=== PATIENT | male | born 1960 | race Caucasian/White ===

== ENCOUNTER → 2017-10-30 16:54 | Outpatient (CLI) | payer BC, SELFPAY ==
[2017-10-30 18:11] LABS: PSA,Total- Diagnostic 3.01 ng/mL (0.0-4.0)
== END ==
PROVIDERS: Family Provider Internal Medicine; PCP Internal Medicine; Visit Provider Urology
DX: Z12.5 Encounter for screening for malignant neoplasm of prostate (principal)
CPT/HCPCS: 36415; 84153

== ENCOUNTER → 2018-03-26 | Outpatient (CLI) | payer BC, SELFPAY ==
[2018-03-26 10:42] LABS: Amphetamine Urine VISTA NEGATIVE (<1000 ng/mL); Barbiturate Urine VISTA NEGATIVE (< 200 ng/mL); Benzodiazepine Urine VISTA NEGATIVE (< 200 ng/mL); Cocaine Urine VISTA NEGATIVE (< 300 ng/mL); Ecstacy Urine VISTA NEGATIVE (< 500 ng/mL); Methadone Urine VISTA NEGATIVE (< 300 ng/mL); PCP Urine VISTA NEGATIVE (< 25 ng/mL); THC Urine VISTA NEGATIVE (< 50 ng/mL); Vista UDS pH Range 7
== END | disposition home or self-care (01) ==
PROVIDERS: Family Provider Internal Medicine; PCP Internal Medicine; Referring Provider Anesthesiology Pain Medicine; Visit Provider Anesthesiology Pain Medicine
DX: F11.20 Opioid dependence, uncomplicated (principal)
CPT/HCPCS: 80307

== ENCOUNTER → 2019-03-10 10:02 | Outpatient (CLI) | payer BC, SELFPAY ==
[2019-03-10 11:13] LABS: Amphetamine Urine VISTA NEGATIVE (<1000 ng/mL); Barbiturate Urine VISTA NEGATIVE (< 200 ng/mL); Benzodiazepine Urine VISTA NEGATIVE (< 200 ng/mL); Cocaine Urine VISTA NEGATIVE (< 300 ng/mL); Ecstacy Urine VISTA NEGATIVE (< 500 ng/mL); Methadone Urine VISTA NEGATIVE (< 300 ng/mL); PCP Urine VISTA NEGATIVE (< 25 ng/mL); THC Urine VISTA NEGATIVE (< 50 ng/mL); Vista UDS pH Range 6
== END ==
PROVIDERS: Family Provider Internal Medicine; PCP Internal Medicine; Referring Provider Anesthesiology Pain Medicine; Visit Provider Anesthesiology Pain Medicine
DX: F11.20 Opioid dependence, uncomplicated (principal)
CPT/HCPCS: 80307

== ENCOUNTER → 2020-01-05 09:31 | Outpatient (CLI) | payer BC, SELFPAY ==
[2020-01-05 10:59] LABS: Amphetamine Urine VISTA NEGATIVE (<1000 ng/mL); Barbiturate Urine VISTA NEGATIVE (< 200 ng/mL); Benzodiazepine Urine VISTA NEGATIVE (< 200 ng/mL); Cocaine Urine VISTA NEGATIVE (< 300 ng/mL); Ecstacy Urine VISTA NEGATIVE (< 500 ng/mL); Methadone Urine VISTA NEGATIVE (< 300 ng/mL); PCP Urine VISTA NEGATIVE (< 25 ng/mL); THC Urine VISTA NEGATIVE (< 50 ng/mL); Vista UDS pH Range 7
== END ==
PROVIDERS: PCP Internal Medicine; Referring Provider Anesthesiology Pain Medicine; Visit Provider Anesthesiology Pain Medicine
DX: F11.20 Opioid dependence, uncomplicated (principal)
CPT/HCPCS: 36415; 80307

== ENCOUNTER 2020-06-16 06:45 | Emergency (ER) | payer BC, SELFPAY ==
[2020-06-16] VITALS (11 sets, daily range): BP systolic 112–161; BP diastolic 46–90; PULSE 71–94; RESP 14–20; TEMP 36.4–36.7; O2SAT 94–100; BMI 43.7
--- NOTE | 2020-06-16 06:53 | NURSING ---
NO OLD EKGS
--- NOTE | 2020-06-16 07:08 | RAD_ITS ---
STUDY: X-RAY CHEST REASON FOR EXAM: Male, 59 years old. SYNCOPE TECHNIQUE: Single AP portable view of the chest. COMPARISON: None. FINDINGS: The lungs are clear and expanded. There is no demonstrated pleural abnormality. Normal size heart. Normal mediastinum and jerry. Normal visualized pulmonary arteries. Normal visualized aortic arch and descending thoracic aorta. Normal visualized thoracic spine. There is degenerative osteoarthritis of the bilateral shoulders. There is no demonstrated abnormality of the visualized soft tissue structures of the upper abdomen. RAD/Chest 1 View (Portable) IMPRESSION: Degenerative changes, as described above. No demonstrated acute cardiopulmonary process. Electronically Signed: Cinthia Watkins MD at 7:44 EST Tel , Service support ,
--- NOTE | 2020-06-16 07:08 | EKG12_ITS ---
Test Reason : SYNCOPE Blood Pressure : / mmHG Vent. Rate : 084 BPM Atrial Rate : 084 BPM P-R Int : 166 ms QRS Dur : 146 ms QT Int : 400 ms P-R-T Axes : 039 -59 019 degrees QTc Int : 472 ms Normal sinus rhythm Right bundle branch block Left anterior fascicular block Bifascicular block Abnormal ECG Confirmed by SALVADOR COLE, ANGEL ([id number]), city editor HILDA CHAPMAN ([id number]) on 06/21/2020 7:54:43 AM Referred By: SERENA Confirmed By:JACKELIN FRANCO MD
--- NOTE | 2020-06-16 07:21 | ED.DCSUM_ITS ---
History of Present Illness Chief Complaint: Syncope Informant: Patient, Family Narrative: 59-year-old male presents following a syncopal episode at home. Patient tells me that he woke this morning had a burning sensation in his head and tinnitus. He states he took off his BiPAP for which he wears for central sleep apnea got sweaty noted that his heart rate was in the 50s according to his apple watch and had a syncopal episode. He tells me that last year while exercising on the treadmill and then exercise bike he had a syncopal episode. He wore a 2-week Holter monitor reportedly was negative. He went for a cardiac stress test and tells me that he had syncope while waiting in a chair after injection. This was followed up by a heart catheterization which was negative. He is currently taking metoprolol 50 mg twice daily for tachycardia. He has not had syncope since that time. Past Medical History - Allergies and Home Meds Allergies/Adverse Reactions: Allergies Penicillins Allergy (Verified 06/16/20 06:50) Anaphylaxis tramadol [From [facility]] Adverse Reaction (Verified 06/16/20 06:50) Rash Past Medical History: - - Central Sleep Apnea Surgical History: gastric bypass Lives: Spouse/ Significant Other Smoking Status: Never smoker Drugs: None Review of Systems General: Denies: Chills, Fever, Sweats Eyes: Denies: Visual changes - bilaterally, Diplopia ENT: Reports: - - Tinnitus. Denies: Rhinorrhea, Sore throat Cardiovascular: Reports: - - Syncope. Denies: Chest pain, Palpitations, Heart racing Respiratory: Denies: Dyspnea, Cough, Dyspnea on exertion Gastrointestinal: Denies: Abdominal pain, Nausea, Vomiting, Diarrhea, Melena, Hematochezia Genitourinary: Denies: Dysuria, Hematuria, Frequency Musculoskeletal: Denies: Back pain, Extremity Pain Skin: Denies: Rash, Wounds Neurological: Denies: Headache, Weakness, Numbness Physical Exam Vital Signs/Narrative: Vital Signs Temp Pulse Resp BP Pulse Ox 06/16/20 06:46 98.1 F 88 15 161/84 H 100 Inital Vital Signs reviewed: Yes General: Well nourished, Well developed, Obese, No Acute Distress Head: Normocephalic, Atraumatic Eyes: Perrl, EOMI ENT: Moist mucous membranes, No rhinorrhea Neck: Supple, Nontender Cardiovascular: Regular rate, Regular rhythm, No murmurs Respiratory: No distress, CTA bilaterally, Chest nontender Abdomen: Soft, Nontender, Nondistended, Normal bowel sounds Back: Nontender, Normal Inspection Extremities: Nontender, No edema Skin: Normal color, No rash Neurological: Alert, Oriented x3, Cranial nerves II-XII grossly intact, Normal Strength, Normal Sensation Psychological: Normal affect, Normal Mood Diagnostic/Tx/Re-eval Clinical Impression(s) from Imaging Studies Chest X-Ray 06/16/20 07:08 IMPRESSION: Degenerative changes, as described above. No demonstrated acute cardiopulmonary process. Electronically Signed: Cinthia Watkins MD at 7:44 EST Tel , Service support , Laboratory Last Values WBC 8.0 K/mm3 (4.4-11.0) 06/16/20 06:55 RBC 5.09 M/mm3 (4.6-6.2) 06/16/20 06:55 Hgb 14.7 g/dL (13.0-16.5) 06/16/20 06:55 Hct 46.3 % (40-54) 06/16/20 06:55 MCV 91.0 fL (80-94) 06/16/20 06:55 MCH 28.9 pg (27.0-32.0) 06/16/20 06:55 MCHC 31.7 g/dL (32-36) L 06/16/20 06:55 RDW Std Deviation 40.6 fl (35.1-43.9) 06/16/20 06:55 RDW Coeff of Karmen 12.4 % (11.6-14.6) 06/16/20 06:55 Plt Count 207 K/mm3 (150-450) 06/16/20 06:55 MPV 10.7 fl (6.2-12.0) 06/16/20 06:55 Immature Gran % (Auto) 0.300 % (0.0-0.9) 06/16/20 06:55 Neut % (Auto) 53.0 % (47-70) 06/16/20 06:55 Lymph % (Auto) 36.7 % (19-41) 06/16/20 06:55 [place] % (Auto) 7.8 % (0-10) 06/16/20 06:55 Eos % (Auto) 1.9 % (0-5) 06/16/20 06:55 Baso % (Auto) 0.3 % (0-1) 06/16/20 06:55 Absolute Neuts (auto) 4.2 X10^3/uL (2.0-7.7) 06/16/20 06:55 Absolute Lymphs (auto) 2.92 X10^3/uL (0.83-4.51) 06/16/20 06:55 Nucleated RBC % 0 % (0-5) 06/16/20 06:55 PT Cancelled 06/16/20 07:54 INR Cancelled 06/16/20 07:54 APTT Cancelled 06/16/20 07:54 Sodium 139 mmol/L (136-145) 06/16/20 06:55 Potassium 4.3 mmol/L (3.5-5.1) 06/16/20 06:55 Chloride 107 mmol/L (98-107) 06/16/20 06:55 Carbon Dioxide 23.0 mmol/L (21.0-32.0) 06/16/20 06:55 Anion Gap 9 (5-15) 06/16/20 06:55 BUN 22 mg/dL (7-18) H 06/16/20 06:55 Creatinine 1.12 mg/dL (0.70-1.30) 06/16/20 06:55 Estim Creat Clear Calc 75.64 ml/min 06/16/20 06:55 Est GFR (MDRD) Af Amer 86 mL/min (>60) 06/16/20 06:55 Est GFR (MDRD) Non-Af 71 mL/min (>60) 06/16/20 06:55 BUN/Creatinine Ratio 19.6 RATIO (10-20) 06/16/20 06:55 Glucose 116 mg/dL (74-106) H 06/16/20 06:55 Calcium 8.9 mg/dL (8.5-10.1) 06/16/20 06:55 Magnesium 2.0 mg/dL (1.6-2.6) 06/16/20 06:55 Total Bilirubin 0.40 mg/dL (0.20-1.00) 06/16/20 06:55 AST 31 U/L (15-37) 06/16/20 06:55 ALT 34 U/L (16-61) 06/16/20 06:55 Alkaline Phosphatase 52 U/L (45-117) 06/16/20 06:55 Troponin I < 0.015 ng/mL (<0.045) 06/16/20 06:55 Total Protein 7.2 g/dL (6.4-8.2) 06/16/20 06:55 Albumin 3.6 g/dL (3.2-5.0) 06/16/20 06:55 Globulin 3.6 g/dL (2.2-4.2) 06/16/20 06:55 Albumin/Globulin Ratio 1.0 RATIO (0.9-2.4) 06/16/20 06:55 - EKG Initial EKG Interpretation: Sinus Rhythm - EKG demonstrates a sinus rhythm with bifascicular block (right bundle branch block and left anterior fascicular block). - Medical Decision Making The department I was able to get some records from [facility] including his heart catheter stress test and his Holter monitor. Patient appears to be having a considerable amount of atrial ectopy. At 1 point the patient appears to went into a third-degree heart block. He was symptomatic during the event which lasted roughly 1 minute. No further episodes were detected during his stay. My interpretation of the single view portable chest x-ray is no acute cardiopulmonary process. Patient appears to have intermittent third-degree heart block associated with syncope and near syncope. I spoke with on-call cardiology Dr. Parkinson and our hospitalist Dr. Howell and the plan is admission. Dr. Parkinson did come to the emergency room and evaluated the patient. The patient is requesting transfer to [facility]. I called and spoke with the cardiology formerly [facility] and they have accepted him. We will wait for bed assignment. - Critical Care Time Critical care time (excluding procedures): 30-74 minutes - 35 min, Discussing w/Patient &/or Family/Exhibition Designer, Discussing w/Consultants, Arranging Admission or Transfer, Performing Direct Patient Care at Bedside ED Disposition - Plan for ED Patient: Disposition: Acute Care Hospital [facility] Diagnosis: Third degree heart block, Syncope and collapse
[2020-06-16 07:39] LABS: Absolute Lymphocyte Count 2.92 X10^3/uL (0.83-4.51); Absolute Neutrophil Count 4.2 X10^3/uL (2.0-7.7); Basophil# 0.02 X10^3/uL; Basophil% 0.3 % (0-1); Eosinophil# 0.15 X10^3/uL; Eosinophils% 1.9 % (0-5); Hematocrit 46.3 % (40-54); Hemoglobin 14.7 g/dL (13.0-16.5); Lymphocyte # 2.92 X10^3/ul (4.0); Lymphocyte % 36.7 % (19-41); Mean Corp Hgb Conc 31.7 g/dL (32-36); Mean Corpuscular Hgb 28.9 pg (27.0-32.0); Mean Platelet Vol. 10.7 fl (6.2-12.0); Monocyte# 0.62 X10^3/uL; Monocyte% 7.8 % (0-10); NRBC Flagged by Analyzer 0 % (0-5); Neutrophil # 4.22 X10^3/uL (2.7-7.7); Platelet Count 207 K/mm3 (150-450); RBC Distribution Width CV 12.4 % (11.6-14.6); RBC Distribution Width SD 40.6 fl (35.1-43.9); Red Blood Count 5.09 M/mm3 (4.6-6.2)
--- NOTE | 2020-06-16 07:44 | NURSING ---
COAGS HEMOLIZED, PER LAB. THEY WILIL REPRINT LABELS
[2020-06-16 08:01] LABS: AST(SGOT) 31 U/L (15-37); Alanine Aminotransfer ALT/SGPT 34 U/L (16-61); Albumin, Serum 3.6 g/dL (3.2-5.0); Alkaline Phosphatase 52 U/L (45-117); Anion Gap 9 (5-15); BUN 22 mg/dL (7-18); BUN/Creat Ratio 19.6 RATIO (10-20); Calcium,Total 8.9 mg/dL (8.5-10.1); Chloride 107 mmol/L (98-107); Creatinine, Serum 1.12 mg/dL (0.70-1.30); EST Glomerular Filtration Rate 71 mL/min (>60); Est Glom Filt Rate - Afr Amer 86 mL/min (>60); Estimated Creatinine Clearance 75.64 ml/min; Globulin 3.6 g/dL (2.2-4.2); Glucose 116 mg/dL (74-106); Potassium 4.3 mmol/L (3.5-5.1); Protein, Total 7.2 g/dL (6.4-8.2); Sodium Level 139 mmol/L (136-145)
--- NOTE | 2020-06-16 08:04 | NURSING ---
CALLED [facility] AND TALKED TO DR ESTEVES'S NURSE FOR CARDIAC THINGS DONE LAST YEAR
--- NOTE | 2020-06-16 08:25 | NURSING ---
DR MANJARREZ FOR DR LYONS
--- NOTE | 2020-06-16 08:29 | NURSING ---
3RD DEGREE HEART BLOCK SYNCOPE PCU JOSSELINE
--- NOTE | 2020-06-16 09:01 | NURSING ---
CALLING [facility] FOR TRANSFER
[2020-06-16 09:23] LABS: Partial Thromboplast Time 25.9 Seconds (24.1-36.2); Prothrombin Time (Protime)PT. 12.7 SECONDS (11.7-14.9)
--- NOTE | 2020-06-16 14:38 | NURSING ---
CALLED [facility] MAIN TO CHECK ON BED STATUS. NOTHING YET, BUT HE IS HIGHEST PRIORITY
--- NOTE | 2020-06-16 18:09 | NURSING ---
CALLED [facility] TRANSFER LINE, TALKED TO LEELA. SHE ADVISED THAT IF PATIENT HAS BEEN HERE MORE THAN 5 HOURS TO ADMIT THEM HERE. DR CHENG AWARE
--- NOTE | 2020-06-16 19:08 | PCM.HP.STD ---
Problem List (1) Chronic back pain Status: Chronic (2) Benign prostatic hyperplasia Status: Chronic (3) Third degree heart block Status: Acute (4) Syncope and collapse Status: Acute History of Present Illness Date of Admission: 06/16/20 Chief Complaint: Syncope. The patient is a 59 year old M with past medical history as mentioned above presented to the emergency room because of syncope. Patient states that this morning he woke up from sleep, took off his CPAP mask from his face, sat on the bed edge and he was about to go to the bathroom, felt dizzy, lightheaded and he collapsed on the floor. His woke up and she did not see him on the bed and he was not walking towards the bathroom and she will found him on the floor. He woke up, spoke to her and set on the bed edge again and again he was about to pass out and she stated that his upper extremities were shaking and he was having trouble speaking and he was confused. Shortly after she mentioned that he also started having shaking of both lower extremities. Patient mentioned that he was confused and he was not able to speak. In the emergency department, his vital signs were stable, initial glucose was elevated but improved. He had an EKG done that showed third-degree AV block. He was evaluated by cardiology and recommended placement of permanent pacemaker but patient's family requested that patient go to [facility] for placement of the pacemaker. Routine blood work was unremarkable. Troponin was negative. LFT was unremarkable. Chest x-ray showed no acute findings. Patient has been awaiting bed availability at [facility] for more than 11 hours and he will be admitted awaiting bed availability there. Meanwhile, his symptoms are not clear to me that the due to only third-degree AV block, patient may have a seizure activity as well. Patient will be admitted awaiting bed availability at [facility] and I will do basic work-up for possible seizure as well. Past Medical History Past Medical History (Chronic Problems): Chronic Problems Chronic back pain (Chronic) Benign prostatic hyperplasia (Chronic) Allergies Penicillins Allergy (Verified 06/16/20 06:50) Anaphylaxis tramadol [From Ultram] Adverse Reaction (Verified 06/16/20 06:50) Rash Home Medications: Ambulatory Orders Medication Instructions Recorded Ibuprofen 800 mg PO BID 06/16/20 Metoprolol Succinate 50 mg PO BID 06/16/20 Omeprazole 40 mg PO DAILY 06/16/20 Oxycodone [Oxyir] 5 mg PO BID 06/16/20 Tamsulosin HCl 0.4 mg PO QHS 06/16/20 Surgical History: gastric bypass, - - Back surgery. Psychiatric History: No pertinent psych hx Lives: Spouse/ Significant Other Smoking Status: Never smoker Alcohol: None Drugs: None - *Family History Maternal History Items: No pertinent history Paternal History Items: No pertinent history Review of Systems Constitutional: Denies: Anorexia, Chills, Fever, Weakness Eyes: Denies: Blurred vision, Double vision, Drainage, Redness HEENT: Denies: Difficulty Hearing, Ear Pain, Eye Pain, Nasal Congestion, Sore Throat Cardiovascular: Reports: Light Headedness, Syncope. Denies: Chest Pain, Chest Pressure, Chest Tightness, Edema, Heaviness, Palpitations, Paroxysmal Noc. Dyspnea Respiratory: Denies: Cough, Pleuritic Pain, Shortness of Breath, Sputum production, Wheezing Gastrointestinal: Denies: Constipation, Diarrhea, Nausea, Vomiting Genitourinary: Denies: Dysuria, Frequency, Hematuria Musculoskeletal: Denies: Arm Pain, Back Pain, Foot Pain Skin: Denies: Dryness, Rash Neurological: Reports: Confusion, - - Questionable seizure.. Denies: Balance problems, Double vision, Change in Speech, Slurred speech, Incoordination, Numbness, Tingling Psychiatric: Denies: Anxiety, Depression Endocrine: Denies: Change in Body Habitus, Polydipsia, Polyuria VTE Information - Inpt Only VTE Present on Admission: No VTE Mechan Device Prophylaxis: None VTE Pharm Prophylaxis ordered?: No Patient Problems: Active and Suspected Problems Third degree heart block (Acute) Syncope and collapse (Acute) - Physical Exam Vitals/I&O's: Vital Signs Temp Pulse Resp BP Pulse Ox 97.6 F L 71 14 112/46 L 96 06/16/20 08:35 06/16/20 17:30 06/16/20 17:30 06/16/20 17:30 06/16/20 17:30 Oxygen Delivery Method Room Air Weight: 313 lb 4.43 oz Body Mass Index (BMI) 43.7 General: Alert, Oriented x3, Cooperative, No apparent distress HEENT: Atraumatic, PERRLA, EOMI, Normocephalic Oral: Moist Mucosa, No Gingival or Mucosal Lesions/ Ulcerations Neck: Supple, No JVD, Negative Carotid Bruits, Trachea Midline, Thyroid Normal Size and Texture Lungs: Clear to auscultation, Normal air movement, No rhonchi, No wheeze, No rales Cardiovascular: Regular rate, Regular Rhythm, Normal S1, Normal S2, PMI Normal Abdomen: Bowel Sounds Present, Soft, Non Tender, Non-Distended, No Hepato-splenomegaly Extremities: No clubbing, No cyanosis, No edema Skin: No rashes, No breakdown Lymphatic: No Cervical, Supraclavicular, or Inguinal Adenopathy Neurological: Cranial nerves II-XII grossly intact, Motor Exam 5/5 strength throughout Psych/Mental Status: Normal Affect, Appropriate, Alert and oriented to time, place, person, mood and affect Microbiology Past 72 Hours 06/16/20 09:56 Mucosa - Nose SARS-CoV-2 Antigen (Rapid) - Final Laboratory Results 06/16/20 06:55: WBC 8.0, RBC 5.09, Hgb 14.7, Hct 46.3, MCV 91.0, MCH 28.9, MCHC 31.7 L, RDW Std Deviation 40.6, RDW Coeff of Karmen 12.4, Plt Count 207, MPV 10.7, Immature Gran % (Auto) 0.300, Neut % (Auto) 53.0, Lymph % (Auto) 36.7, [place] % (Auto) 7.8, Eos % (Auto) 1.9, Baso % (Auto) 0.3, Absolute Neuts (auto) 4.2, Absolute Lymphs (auto) 2.92, Nucleated RBC % 0 06/16/20 06:55: PT Cancelled, INR Cancelled, APTT Cancelled 06/16/20 06:55: Sodium 139, Potassium 4.3, Chloride 107, Carbon Dioxide 23.0, Anion Gap 9, BUN 22 H, Creatinine 1.12, Estim Creat Clear Calc 75.64, Est GFR (MDRD) Af Amer 86, Est GFR (MDRD) Non-Af 71, BUN/Creatinine Ratio 19.6, Glucose 116 H, Calcium 8.9, Magnesium 2.0, Total Bilirubin 0.40, AST 31, ALT 34, Alkaline Phosphatase 52, Troponin I < 0.015, Total Protein 7.2, Albumin 3.6, Globulin 3.6, Albumin/Globulin Ratio 1.0 06/16/20 07:54: PT Cancelled, INR Cancelled, APTT Cancelled 06/16/20 08:30: PT 12.7, INR 1.0, APTT 25.9 Clinical Impression(s) from Imaging Studies Chest X-Ray 06/16/20 07:08 IMPRESSION: Degenerative changes, as described above. No demonstrated acute cardiopulmonary process. Electronically Signed: Cinthia Watkins MD at 7:44 EST Tel , Service support , Assessment/Plan All Active Problems Third degree heart block (Acute) Syncope and collapse (Acute) This is a 59 years old male patient presented to the emergency room because of syncopal episode, found to have third-degree AV block, required placement of pacemaker but patient's family requested transfer to [facility] and according to the history I got from the patient, seizure cannot be ruled out. #1 syncopal episode: Unclear to me if it is cardiogenic or neurogenic or both. EKG revealed third-degree AV block, cardiology evaluated the patient and recommended pacemaker placement but patient's family requested transfer to [facility]. Currently, patient is in sinus rhythm, heart rate stable, blood pressure stable. Routine blood work was unremarkable. Troponin was negative. Chest x-ray showed no acute findings. Patient has been on metoprolol and I am not sure why, he denied history of hypertension or CAD. Plan: Admit to PCU for observation awaiting bed availability at [facility], percutaneous pacer standby in case of patient went again into complete heart block, hold metoprolol for now, close monitoring, CT scan brain, EEG, cardiac diet, Tylenol as needed, Zofran as needed. Patient can be transferred to [facility] once bed is available and he can complete the possible seizure work-up there. #2 chronic back pain: Continue OxyIR twice daily. #3 benign prostatic hypertrophy: Continue Flomax. #4 DVT prophylaxis: Low risk patient, no prophylaxis indicated. This note was generated with Met[employer] software. It may contain incorrect words, spelling, and punctuation that were not noted in checking the note before signing. OBSV E&M: [id number] Initial observation care L3
--- NOTE | 2020-06-16 19:45 | ED.RN ---
[facility] Pt will now be transferred instead of admitted. Pt and family aware..
== END 2020-06-16 22:12 | disposition short-term general hospital (02) ==
PROVIDERS: Emergency Provider Emergency Medicine; PCP Internal Medicine
DX: I44.2 Atrioventricular block, complete (principal); R55 Syncope and collapse; E66.9 Obesity, unspecified; Z98.84 Bariatric surgery status
CPT/HCPCS: 36415; 71045; 80053; 83735; 84484; 85025; 85610; 85730; 87426; 93005; 99285; A4216

== ENCOUNTER → 2020-09-02 10:31 | Outpatient (CLI) | payer BC, SELFPAY ==
[2020-06-16 06:46] VITALS: BMI 43.7
[2020-09-02 11:24] LABS: Amphetamine Urine VISTA NEGATIVE (<1000 ng/mL); Barbiturate Urine VISTA NEGATIVE (< 200 ng/mL); Benzodiazepine Urine VISTA NEGATIVE (< 200 ng/mL); Cocaine Urine VISTA NEGATIVE (< 300 ng/mL); Ecstacy Urine VISTA NEGATIVE (< 500 ng/mL); Methadone Urine VISTA NEGATIVE (< 300 ng/mL); PCP Urine VISTA NEGATIVE (< 25 ng/mL); THC Urine VISTA NEGATIVE (< 50 ng/mL); Vista UDS pH Range 6
== END ==
PROVIDERS: PCP Internal Medicine; Referring Provider Anesthesiology Pain Medicine; Visit Provider Anesthesiology Pain Medicine
DX: F11.20 Opioid dependence, uncomplicated (principal)
CPT/HCPCS: 80307

== ENCOUNTER → 2021-04-21 14:31 | Outpatient (CLI) | payer BC, SELFPAY ==
[2021-04-21 16:27] LABS: PSA,Total - Annual Screen 2.79 ng/mL (0.00-4.00)
== END ==
PROVIDERS: PCP Internal Medicine; Visit Provider Urology
DX: Z12.5 Encounter for screening for malignant neoplasm of prostate (principal)
CPT/HCPCS: 36415; 84153; G0103

== ENCOUNTER 2021-06-08 11:48 | Outpatient (CLI) | payer BC, SELFPAY ==
[2021-06-08 13:11] LABS: Amphetamine Urine VISTA NEGATIVE (<1000 ng/mL); Barbiturate Urine VISTA NEGATIVE (< 200 ng/mL); Benzodiazepine Urine VISTA NEGATIVE (< 200 ng/mL); Cocaine Urine VISTA NEGATIVE (< 300 ng/mL); Ecstacy Urine VISTA NEGATIVE (< 500 ng/mL); Methadone Urine VISTA NEGATIVE (< 300 ng/mL); PCP Urine VISTA NEGATIVE (< 25 ng/mL); THC Urine VISTA NEGATIVE (< 50 ng/mL); Vista UDS pH Range 6
== END 2021-06-08 23:59 | disposition home or self-care (01) ==
LOC: LAB 11:50
PROVIDERS: PCP Internal Medicine; Referring Provider Anesthesiology Pain Medicine; Visit Provider Anesthesiology Pain Medicine
DX: F11.20 Opioid dependence, uncomplicated (principal)
CPT/HCPCS: 80307

== ENCOUNTER → 2022-03-01 | Outpatient (CLI) | payer BC, SELFPAY ==
[2022-03-01 11:46] LABS: Amphetamine Urine VISTA NEGATIVE (<1000 ng/mL); Barbiturate Urine VISTA NEGATIVE (< 200 ng/mL); Benzodiazepine Urine VISTA NEGATIVE (< 200 ng/mL); Cocaine Urine VISTA NEGATIVE (< 300 ng/mL); Ecstacy Urine VISTA NEGATIVE (< 500 ng/mL); Methadone Urine VISTA NEGATIVE (< 300 ng/mL); PCP Urine VISTA NEGATIVE (< 25 ng/mL); THC Urine VISTA NEGATIVE (< 50 ng/mL); Vista UDS pH Range 7
== END | disposition home or self-care (01) ==
LOC: LAB 10:33
PROVIDERS: PCP Internal Medicine; Referring Provider Anesthesiology Pain Medicine; Visit Provider Anesthesiology Pain Medicine
DX: F11.20 Opioid dependence, uncomplicated (principal)
CPT/HCPCS: 80307

== ENCOUNTER → 2022-04-18 | Outpatient (CLI) | payer BC, SELFPAY | END | disposition home or self-care (01) | LOC: LAB 12:39 | PROVIDERS: PCP Internal Medicine; Referring Provider Registered Nurse; Visit Provider Registered Nurse | DX: Z12.5 Encounter for screening for malignant neoplasm of prostate (principal) | CPT/HCPCS: 36415; 84153; G0103 ==

== ENCOUNTER → 2023-03-12 | Outpatient (CLI) | payer BC, SELFPAY ==
[2023-03-12 11:30] LABS: PSA,Total- Diagnostic 2.28 ng/mL (0.0-4.0)
== END | disposition home or self-care (01) ==
LOC: LAB 10:36
PROVIDERS: PCP Internal Medicine; Referring Provider Urology; Visit Provider Urology
DX: Z12.5 Encounter for screening for malignant neoplasm of prostate (principal)
CPT/HCPCS: 36415; 84153